=== PATIENT | female | born 1990 | race American Indian/Alaskan Native ===

== ENCOUNTER 2022-02-24 22:51 | Emergency (ER) | payer MEDICARE ==
[2022-02-24] MEDS ORDERED: SODIUM CHLORIDE 0.9% 1000 ML 1,000 ML IV ONE ×2 (23:49→23:50)
[2022-02-24] MEDS ORDERED: INSULIN REGULAR, HUMAN 100 UNITS/1 ML IV ONE (23:50)
[2022-02-25 00:22] LABS: Basophils % (Auto) 0.4 % (0.0-1.8); Eosinophils # (Auto) 0.1 K/mm3 (0.0-0.4); Eosinophils % (Auto) 0.9 % (0.0-4.3); Hematocrit 27.1 % (30.3-42.9); Hemoglobin 8.7 gm/dl (10.1-14.3); Lymphocytes # (Auto) 3.3 K/mm3 (1.2-5.4); Lymphocytes % (Auto) 27.8 % (13.4-35.0); Mean Corpuscular HGB Conc 32 % (30-34); Monocytes # (Auto) 0.7 K/mm3 (0.0-0.8); Monocytes % (Auto) 6.4 % (0.0-7.3); Platelet Count 299 K/mm3 (140-440); Red Blood Count 4.19 M/mm3 (3.65-5.03)
[2022-02-25 00:24] LABS: Mean Corpuscular Volume 65 fl (79-97)
[2022-02-25 00:34] LABS: Alanine Aminotransferase 8 units/L (7-56); Albumin 4.1 g/dL (3.9-5); Blood Urea Nitrogen 7 mg/dL (7-17); Calcium 9.7 mg/dL (8.4-10.2); Hemolysis Index 0
[2022-02-25 00:46] LABS: BUN/Creatinine Ratio 10
[2022-02-25 01:12] LABS: Bilirubin,Urine NEG (Negative); Blood,Urine NEG (Negative); Color,Urine Colorless (Yellow); Protein,Urine <15 mg/dL mg/dL (Negative); Urobilinogen,Urine < 2.0 mg/dL (<2.0)
[2022-02-25 01:15] LABS: Mucus,Urine FEW /HPF; RBC,Urine < 1.0 /HPF (0.0-6.0)
[2022-02-25] MEDS ORDERED: ONDANSETRON 4 MG/2 ML INJ IV ONE (01:17)
--- NOTE | 2022-02-25 01:19 | Emergency Department Report ---
<ALEXANDER FAIR - Last Filed: 02/25/22 11:40> ED General Adult HPI - General Chief complaint: Hyperglycemia Stated complaint: DIABETIC/ BLURRED VISION Time Seen by Provider: 02/25/22 00:00 - Related Data Previous Rx's Medication Instructions Recorded Last Taken Type Insulin Aspart (Nf) [NovoLOG See Protocol SQ AC #1 pen 02/25/22 Unknown Rx Flexpen] Insulin Glargine [Lantus VIAL] 10 unit SUB-Q BID 30 Days vial 02/25/22 Unknown Rx Insulin Lispro [Humalog] 6 unit SQ Q4HR #1 vial 02/25/22 Unknown Rx Allergies Allergy/AdvReac Type Severity Reaction Status Date / Time No Known Allergies Allergy Verified 02/25/22 00:47 ED Past Medical Hx - Medications Home Medications: Home Medications Medication Instructions Recorded Confirmed Last Taken Type Insulin Aspart (Nf) [NovoLOG See Protocol SQ AC #1 pen 02/25/22 Unknown Rx Flexpen] Insulin Glargine [Lantus VIAL] 10 unit SUB-Q BID 30 Days vial 02/25/22 Unknown Rx Insulin Lispro [Humalog] 6 unit SQ Q4HR #1 vial 02/25/22 Unknown Rx ED Medical Decision Making - Lab Data Result diagrams: 02/24/22 23:29 02/24/22 23:29 ED Disposition Clinical Impression: Hyperglycemia due to diabetes mellitus, Noncompliance with medication regimen, Hyperglycemia Disposition: 01 HOME / SELF CARE / HOMELESS Is pt being admited?: No Does the pt Need Aspirin: No Condition: Stable Instructions: Hyperglycemia, [id number], Diabetes Mellitus Type 2 in Adults (ED) Additional Instructions: You have been provided a prescription for your Lantus and Humalog as previously prescribed. If you are unable to afford this medication and alternative is to take Novolol sliding scale dosing based on your blood glucose level. Relion brand regular insulin is a more affordable version at [facility]. Follow-up with your doctor or doctor/clinic provided. Return if symptoms worsen as indicated by your discharge instructions. To clarify take Lantus and Humalog combined OR take the NovoLog sliding scale regiment. Do not take all 3 insulin doses because they can cause a life threatening drop in your blood sugar.. Prescriptions: Insulin Lispro [Humalog] 6 unit SQ Q4HR #1 vial Insulin Glargine [Lantus VIAL] 10 unit SUB-Q BID 30 Days vial Insulin Aspart (Nf) [NovoLOG Flexpen] See Protocol SQ AC #1 pen Referrals: PRIMARY CARE, [Primary Care Provider] - 3-5 Days RADHA MAURICE MD [Staff Physician] - 3-5 Days Time of Disposition: 11:40 <RHODESMARLON Rafiq - Last Filed: 02/25/22 21:49> ED General Adult HPI - General Source: patient Mode of arrival: Ambulatory Limitations: No Limitations - History of Present Illness Initial comments: 31-year-old female with a past medical history of diabetes currently insulin presents to the hospital with complaints of hyperglycemia. Patient is here visiting from [facility] and has not had access to her insulin for 3 weeks. She attempted to fill her prescription here in [place] but it was not approved by Medicaid. Patient complains of blurred vision, headache, nausea, generalized weakness, increased thirst. No reports of vomiting or fevers. Patient is prescribed Lantus 10 units subcu twice daily Humalog 6 units every 4 hours ED Review of Systems ROS: Stated complaint: DIABETIC/ BLURRED VISION Other details as noted in HPI Comment: All other systems reviewed and negative ED Physical Exam - General Limitations: No Limitations - Other Other exam information: General: No acute distress Head: Atraumatic Eyes: normal appearance ENT: Moist mucous membranes Neck: Normal appearance, no midline tenderness Chest: Clear to auscultation bilaterally CV: Regular rate and rhythm Abdomen: Soft, normal bowel sounds, nontender, nondistended, no rebound or guarding Back: Normal inspection Extremity: Normal inspection, full range of motion Neuro: Alert O x 3, no facial asymmetry, speech clear, no gross motor sensory deficit Psych: Appropriate behavior Skin: No rash ED Course Vital Signs 02/24/22 02/25/22 02/25/22 23:17 00:47 01:09 Temperature 97.7 F Pulse Rate 80 Respiratory 16 18 Rate Blood Pressure 114/64 87/43 Blood Pressure [Left] O2 Sat by Pulse 100 99 Oximetry 02/25/22 02/25/22 02/25/22 01:15 01:31 01:45 Temperature Pulse Rate Respiratory Rate Blood Pressure 87/43 87/43 87/43 Blood Pressure [Left] O2 Sat by Pulse 100 100 99 Oximetry 02/25/22 02/25/22 02/25/22 02:01 02:15 02:31 Temperature Pulse Rate Respiratory Rate Blood Pressure 98/56 98/56 98/56 Blood Pressure [Left] O2 Sat by Pulse 99 98 98 Oximetry 02/25/22 02/25/22 02/25/22 02:45 03:00 03:35 Temperature Pulse Rate Respiratory Rate Blood Pressure 98/56 98/56 105/60 Blood Pressure [Left] O2 Sat by Pulse 100 100 98 Oximetry 02/25/22 02/25/22 02/25/22 03:45 04:01 04:15 Temperature Pulse Rate Respiratory Rate Blood Pressure 105/60 98/54 105/60 Blood Pressure [Left] O2 Sat by Pulse 99 100 100 Oximetry 02/25/22 02/25/22 02/25/22 04:31 04:45 05:01 Temperature Pulse Rate Respiratory Rate Blood Pressure 105/60 105/60 101/66 Blood Pressure [Left] O2 Sat by Pulse 99 99 100 Oximetry 02/25/22 02/25/22 05:15 08:30 Temperature Pulse Rate 85 Respiratory 18 Rate Blood Pressure 101/66 Blood Pressure 98/59 [Left] O2 Sat by Pulse 98 99 Oximetry - Reevaluation(s) Reevaluation #1: 02/25/22 05:22 pt reports LEONARDO better, BG trending downward. Pt not receiving IVF due to bent arm at IV site. Instructed to keep arm straight ED Medical Decision Making - Lab Data Result diagrams: 02/24/22 23:29 02/24/22 23:29 Lab Results 02/24/22 02/24/22 02/24/22 Range/Units 23:22 23:29 23:29 WBC 11.7 H (4.5-11.0) K/mm3 RBC 4.19 (3.65-5.03) M/mm3 Hgb 8.7 L (10.1-14.3) gm/dl Hct 27.1 L (30.3-42.9) % MCV 65 L (79-97) fl MCH 21 L (28-32) pg MCHC 32 (30-34) % RDW 20.0 H (13.2-15.2) % Plt Count 299 (140-440) K/mm3 Lymph % (Auto) 27.8 (13.4-35.0) % [place] % (Auto) 6.4 (0.0-7.3) % Eos % (Auto) 0.9 (0.0-4.3) % Baso % (Auto) 0.4 (0.0-1.8) % Lymph # (Auto) 3.3 (1.2-5.4) K/mm3 [place] # (Auto) 0.7 (0.0-0.8) K/mm3 Eos # (Auto) 0.1 (0.0-0.4) K/mm3 Baso # (Auto) 0.0 (0.0-0.1) K/mm3 Seg Neutrophils % 64.5 (40.0-70.0) % Seg Neutrophils # 7.6 (1.8-7.7) K/mm3 VBG pH (7.320-7.420) Sodium 126 L (137-145) mmol/L Potassium 4.9 (3.6-5.0) mmol/L Chloride 89.4 L (98-107) mmol/L Carbon Dioxide 22 (22-30) mmol/L Anion Gap 20 mmol/L BUN 7 (7-17) mg/dL Creatinine 0.7 (0.6-1.2) mg/dL Estimated GFR > 60 ml/min BUN/Creatinine Ratio 10 % Glucose 710 H* (65-100) mg/dL POC Glucose > 600 H (70-105) mg/dL Calcium 9.7 (8.4-10.2) mg/dL Total Bilirubin 0.40 (0.1-1.2) mg/dL AST 9 (5-40) units/L ALT 8 (7-56) units/L Alkaline Phosphatase 131 H (35-129) units/L Total Protein 7.0 (6.3-8.2) g/dL Albumin 4.1 (3.9-5) g/dL Albumin/Globulin Ratio 1.4 % HCG, Quant (0-4) mIU/mL Urine Color (Yellow) Urine Turbidity (Clear) Urine pH (5.0-7.0) Ur Specific [place] (1.003-1.030) Urine Protein (Negative) mg/dL Urine Glucose (UA) (Negative) mg/dL Urine Ketones (Negative) mg/dL Urine Blood (Negative) Urine Nitrite (Negative) Urine Bilirubin (Negative) Urine Urobilinogen (<2.0) mg/dL Ur Leukocyte Esterase (Negative) Urine WBC (Auto) (0.0-6.0) /HPF Urine RBC (Auto) (0.0-6.0) /HPF Urine Mucus /HPF 02/24/22 02/25/22 02/25/22 Range/Units 23:52 00:47 02:49 WBC (4.5-11.0) K/mm3 RBC (3.65-5.03) M/mm3 Hgb (10.1-14.3) gm/dl Hct (30.3-42.9) % MCV (79-97) fl MCH (28-32) pg MCHC (30-34) % RDW (13.2-15.2) % Plt Count (140-440) K/mm3 Lymph % (Auto) (13.4-35.0) % [place] % (Auto) (0.0-7.3) % Eos % (Auto) (0.0-4.3) % Baso % (Auto) (0.0-1.8) % Lymph # (Auto) (1.2-5.4) K/mm3 [place] # (Auto) (0.0-0.8) K/mm3 Eos # (Auto) (0.0-0.4) K/mm3 Baso # (Auto) (0.0-0.1) K/mm3 Seg Neutrophils % (40.0-70.0) % Seg Neutrophils # (1.8-7.7) K/mm3 VBG pH 7.304 L (7.320-7.420) Sodium (137-145) mmol/L Potassium (3.6-5.0) mmol/L Chloride (98-107) mmol/L Carbon Dioxide (22-30) mmol/L Anion Gap mmol/L BUN (7-17) mg/dL Creatinine (0.6-1.2) mg/dL Estimated GFR ml/min BUN/Creatinine Ratio % Glucose (65-100) mg/dL POC Glucose 366 H (70-105) mg/dL Calcium (8.4-10.2) mg/dL Total Bilirubin (0.1-1.2) mg/dL AST (5-40) units/L ALT (7-56) units/L Alkaline Phosphatase (35-129) units/L Total Protein (6.3-8.2) g/dL Albumin (3.9-5) g/dL Albumin/Globulin Ratio % HCG, Quant (0-4) mIU/mL Urine Color Colorless (Yellow) Urine Turbidity Clear (Clear) Urine pH 6.0 (5.0-7.0) Ur Specific [place] 1.021 (1.003-1.030) Urine Protein <15 mg/dl (Negative) mg/dL Urine Glucose (UA) >=500 (Negative) mg/dL Urine Ketones Neg (Negative) mg/dL Urine Blood Neg (Negative) Urine Nitrite Neg (Negative) Urine Bilirubin Neg (Negative) Urine Urobilinogen < 2.0 (<2.0) mg/dL Ur Leukocyte Esterase Neg (Negative) Urine WBC (Auto) 1.0 (0.0-6.0) /HPF Urine RBC (Auto) < 1.0 (0.0-6.0) /HPF Urine Mucus Few /HPF 02/25/22 02/25/22 02/25/22 Range/Units 05:03 11:54 23:52 WBC (4.5-11.0) K/mm3 RBC (3.65-5.03) M/mm3 Hgb (10.1-14.3) gm/dl Hct (30.3-42.9) % MCV (79-97) fl MCH (28-32) pg MCHC (30-34) % RDW (13.2-15.2) % Plt Count (140-440) K/mm3 Lymph % (Auto) (13.4-35.0) % [place] % (Auto) (0.0-7.3) % Eos % (Auto) (0.0-4.3) % Baso % (Auto) (0.0-1.8) % Lymph # (Auto) (1.2-5.4) K/mm3 [place] # (Auto) (0.0-0.8) K/mm3 Eos # (Auto) (0.0-0.4) K/mm3 Baso # (Auto) (0.0-0.1) K/mm3 Seg Neutrophils % (40.0-70.0) % Seg Neutrophils # (1.8-7.7) K/mm3 VBG pH (7.320-7.420) Sodium (137-145) mmol/L Potassium (3.6-5.0) mmol/L Chloride (98-107) mmol/L Carbon Dioxide (22-30) mmol/L Anion Gap mmol/L BUN (7-17) mg/dL Creatinine (0.6-1.2) mg/dL Estimated GFR ml/min BUN/Creatinine Ratio % Glucose (65-100) mg/dL POC Glucose 306 H 298 H (70-105) mg/dL Calcium (8.4-10.2) mg/dL Total Bilirubin (0.1-1.2) mg/dL AST (5-40) units/L ALT (7-56) units/L Alkaline Phosphatase (35-129) units/L Total Protein (6.3-8.2) g/dL Albumin (3.9-5) g/dL Albumin/Globulin Ratio % HCG, Quant < 2 (0-4) mIU/mL Urine Color (Yellow) Urine Turbidity (Clear) Urine pH (5.0-7.0) Ur Specific [place] (1.003-1.030) Urine Protein (Negative) mg/dL Urine Glucose (UA) (Negative) mg/dL Urine Ketones (Negative) mg/dL Urine Blood (Negative) Urine Nitrite (Negative) Urine Bilirubin (Negative) Urine Urobilinogen (<2.0) mg/dL Ur Leukocyte Esterase (Negative) Urine WBC (Auto) (0.0-6.0) /HPF Urine RBC (Auto) (0.0-6.0) /HPF Urine Mucus /HPF - Medical Decision Making 31-year-old female presents to the hospital with hyperglycemia secondary to insulin noncompliance for the last 3 weeks. Patient apparently cannot afford the Lantus and Humalog secondary to an active Medicaid at this time. Patient will be prescribed regular insulin sliding scale based dosing preferably RElion brand available at [employer] and discounted [employer]. pt signed out to Dr Fair to d/c once bg < 300 - Differential Diagnosis DKA, hyperglycemia, infection, medication NONCOMPLIANCE Critical Care Time: No Critical care attestation.: If time is entered above; I have spent that time in minutes in the direct care of this critically ill patient, excluding procedure time. ED Disposition Is pt being admited?: No Does the pt Need Aspirin: No
[2022-02-25] MEDS ORDERED: KETOROLAC 30 MG/1 ML INJ IV ONE (02:44)
[2022-02-25] MEDS ORDERED: INSULIN REGULAR, HUMAN 100 UNITS/1 ML IV ONE ×2 (02:52→05:21)
[2022-02-25] MEDS ORDERED: SODIUM CHLORIDE 0.9% 1000 ML 1,000 ML IV ONE (02:53)
[2022-02-25] MEDS ORDERED: ACETAMINOPHEN 325 MG TAB PO ONE (02:53)
[2022-02-25 09:22] VITALS: BP 98/59
--- NOTE | 2022-02-26 09:58 | Event Note ---
Date: 02/26/22 Got a call from [facility] pharmacy needing clarification for the NovoLog insulin that was prescribed but does not have a prescription direction. Since patient have have home allows and Lantus units I told the pharmacist to hold the NovoLog at this time on the patient follow-up with the primary doctor and see a need for continuation.
== END 2022-02-25 12:37 | disposition home or self-care (01) ==
LOC: ED 22:51
DX: E11.65 Type 2 diabetes mellitus with hyperglycemia (principal); Z91.14 Patient's other noncompliance with medication regimen
CPT/HCPCS: 36415; 80053; 81001; 82805; 82962; 84702; 85025; 96361; 96365; 96375; 96376; 99283; J1885; J2405; J7030; Q9967; J1815